=== PATIENT | male | born 1985 | race Caucasian/White ===

== ENCOUNTER → 2016-08-09 | Outpatient (CLI) | payer BC, OTHER ==
--- NOTE | 2016-08-09 14:11 | DI ---
XR EYE FOREIGN BODY,08/09/2016 1:54 PM: Clinical History: Rule out foreign body. Previous Exam: December 14, 2014 Findings: AP and lateral views of the paranasal sinuses are obtained, and demonstrate no evidence of metallic f oreign body. Paranasal sinuses are unremarkable. The cervical spine is also unremarkable. Impression: No evidence of metallic foreign body.
--- NOTE | 2016-08-09 16:41 | DI ---
MRI LUMBAR SPINE W/WO CN,08/09/2016 1:28 PM: Clinical History: Low back pain with left leg radiculopathy. Previous Exam: December 15, 2014 Findings: Multiplanar MR images are obtained through the lumbar spine both before and after the intravenous adm inistration of 20 mL of OptiMARK contrast. Bony alignment is anatomic. No fractures are seen. Marrow signal is preserved except at the L5/S1 lev el where there is some degenerative endplate change which remains stable. Visualized portions of the distal spinal cord are normal with the conus at the L1 level. Visualized portions of the paravertebral soft tissues are unremarkable. The kidneys are also unremark able. There are postsurgical changes at the L5 level consistent with a left hemiarthroplasty. Individual intervertebral disc spaces: L1-L5: No significant stenosis. L5/S1: There is a new large disc extrusion in the area of the prior extrusion which now involves the entire left paracentral to foraminal zones and contacts the exiting L5 nerve root on the left. This causes moderate central canal stenosis pushing the thecal sac to the right. There is some mild e nhancement surrounding the outer portion of this large disc extrusion. This extends posteriorly 13 mm into the left L5 flakita-laminectomy. Impression: New 13 mm extrusion of a large left paracentral through foraminal disc bulge causing moderate central canal stenosis and contacting the exiting L5 left nerve root which is enlarged and inflamed. This ar ises from what was a smaller disc extrusion on the prior exam in 2014.
== END ==
LOC: MRI 13:22
PROVIDERS: ATTEND Chiropractor
DX: M54.16 Radiculopathy, lumbar region (principal); Z57.8 Occupational exposure to other risk factors; M51.17 Intervertebral disc disorders with radiculopathy, lumbosacral region
CPT/HCPCS: 70030; 72158; A9579